=== PATIENT | female | born 1955 | race Hispanic/Latino ===

== ENCOUNTER → 2022-11-10 | Outpatient (CLI) | payer MEDICARE ==
[~2022-11-10] MED LIST: GADOTERATE MEGLUMINE 10 MMOL/20 ML VIAL IV ONE
== END | disposition home or self-care (01) ==
LOC: RAH 12:57
PROVIDERS: ATTEND Internal Medicine Critical Care Medicine
DX: F03.A0 Unspecified dementia, mild, without behavioral disturbance, psychotic disturbance, mood disturbance, and anxiety (principal)
CPT/HCPCS: 70553; A9575

== ENCOUNTER → 2023-12-02 | Outpatient (CLI) | payer MEDICARE | END | disposition home or self-care (01) | LOC: RAH 14:54 | PROVIDERS: ATTEND Internal Medicine Critical Care Medicine | DX: N63.42 Unspecified lump in left breast, subareolar (principal); N63.41 Unspecified lump in right breast, subareolar | CPT/HCPCS: 77049; A9575 ==